=== PATIENT | male | born 1960 | race Two or more races ===

== ENCOUNTER 2019-08-18 11:23 | Emergency (ER) | payer BC ==
[~2019-08-18] VITALS: Ht 170.2 cm; Wt 79.4 kg
[2019-08-18] MEDS ORDERED: ENALAPRIL MALEA10 MG PO (11:56)
[2019-08-18] MEDS ORDERED: XANAX0.25 MG PO (11:57)
[2019-08-18] MEDS ORDERED: ZOLOFT100 MG PO (11:57)
[2019-08-18] MEDS ORDERED: AMITRIPTYLINE H25 MG PO (11:57)
[2019-08-18] MEDS ORDERED: BIKTARVY 50-201 EACH PO (11:57)
[2019-08-18] MEDS ORDERED: TAMS0.4C PO (11:58)
== END 2019-08-18 14:37 | disposition home or self-care (01) ==
LOC: ER 11:23
DX: J10.1 Influenza due to other identified influenza virus with other respiratory manifestations (principal)